=== PATIENT | male | born 1965 | race Caucasian/White ===

== ENCOUNTER 2017-03-26 00:44 | Emergency (ER) | payer OTHER, MEDICAID ==
[2017-03-26 01:05] VITALS: BP 114/86
== END 2017-03-26 01:05 | disposition home or self-care (01) ==
LOC: ED 00:44
DX: G40.909 Epilepsy, unspecified, not intractable, without status epilepticus (principal); M25.562 Pain in left knee; Z88.8 Allergy status to other drugs, medicaments and biological substances; Z88.6 Allergy status to analgesic agent; Z79.891 Long term (current) use of opiate analgesic; Z79.899 Other long term (current) drug therapy; Z79.52 Long term (current) use of systemic steroids

== ENCOUNTER 2017-05-30 15:38 | Emergency (ER) | payer OTHER, MEDICAID ==
[~2017-05-30] VITALS: Ht 182.9 cm; Wt 99.8 kg
[2017-05-30 19:33] VITALS: BP 136/72
== END 2017-05-30 19:33 | disposition home or self-care (01) ==
LOC: ED 15:38
DX: R56.9 Unspecified convulsions (principal); G93.40 Encephalopathy, unspecified; E11.9 Type 2 diabetes mellitus without complications; G83.81 Brown-Sequard syndrome; G83.11 Monoplegia of lower limb affecting right dominant side; I10 Essential (primary) hypertension; Z88.8 Allergy status to other drugs, medicaments and biological substances; Z88.5 Allergy status to narcotic agent

== ENCOUNTER 2017-09-27 02:21 | Emergency (ER) | payer OTHER, MEDICAID ==
[~2017-09-27] VITALS: Ht 185.4 cm; Wt 104.3 kg
[2017-09-27 02:28] VITALS: Ht 185.4 cm; Wt 104.3 kg
[2017-09-27 04:18] VITALS: BP 140/86
== END 2017-09-27 04:18 | disposition home or self-care (01) ==
LOC: ED 02:21
DX: S46.012A Strain of muscle(s) and tendon(s) of the rotator cuff of left shoulder, initial encounter (principal); G40.909 Epilepsy, unspecified, not intractable, without status epilepticus; I10 Essential (primary) hypertension; E11.9 Type 2 diabetes mellitus without complications; Z88.8 Allergy status to other drugs, medicaments and biological substances; W17.89XA Other fall from one level to another, initial encounter; Y93.89 Activity, other specified; Y92.89 Other specified places as the place of occurrence of the external cause; Y99.8 Other external cause status
CPT/HCPCS: Q0092

== ENCOUNTER 2018-04-18 13:40 | Inpatient (IN) | payer OTHER ==
[~2018-04-18] VITALS: Ht 185.4 cm; Wt 105.0 kg
[~2018-04-18 13:40] MED LIST: BACLOFEN10 MG PO; BACLOFEN20 MG PO; BACTRIM DS1 TAB PO; BD LACTINEX1.4 MG PO; DIL100 PO; GABAPENTIN600 M1 PO; NORCO1 TA2 PO; PHENYTOIN100 M1 PO; VIAGRA50 MG PO; ZANAFLEX CAPSULE2 MG PO; ZESTRIL20 MG PO; [UNRECOGNIZED DRUG - OTHER] PO
[2018-04-18 13:50] VITALS: Ht 185.4 cm; Wt 105.0 kg
[2018-04-18 14:06] LABS: BASOPHIL % 1.7 % (0-2); PLATELET COUNT 301 x10^3mcL (130-400); RED CELL DISTRIBUTION WIDTH 12.9 % (11.5-14.5)
[2018-04-18 14:22] LABS: ALKALINE PHOSPHATASE 176 U/L (46-116); ALT/SGPT 64 U/L (16-63); AST/SGOT 59 U/L (15-37); CALCIUM 7.4 mg/dL (8.5-10.1); CARBON DIOXIDE 22.3 mmol/L (21-32); CHLORIDE SERUM 90 mmol/L (98-107); CREATININE SERUM 1.1 mg/dL (0.7-1.3); GFR1 > 60 mL/min; GLUCOSE SERUM 209 mg/dL (74-106); POTASSIUM SERUM 3.5 mmol/L (3.5-5.1)
[2018-04-18 14:31] LABS: ALBUMIN 2.1 g/dL (3.4-5.0)
[2018-04-18 14:32] LABS: SODIUM SERUM 123 mmol/L (136-145)
[2018-04-18 17:28] VITALS: BP 125/81
[2018-04-18 18:23] LABS: MAGNESIUM 2.2 mg/dL (1.8-2.4); PHOSPHOROUS 2.9 mg/dL (2.5-4.9)
[2018-04-18 18:27] LABS: CHOLESTEROL/HDL RATIO 4.3
[2018-04-18 18:29] LABS: T3 TOTAL 0.72 ng/mL
[2018-04-18 18:33] LABS: FREE T4 1.18 ng/dL (0.76-1.46); FREE THYROXINE INDEX 2.3 ug/dL (1.4-4.5); T4(THYROXINE) 5.7 ug/dL (4.7-13.3)
[2018-04-18 19:31] LABS: CALCIUM 8.4 mg/dL (8.5-10.1); CARBON DIOXIDE 22.1 mmol/L (21-32); CHLORIDE SERUM 91 mmol/L (98-107); CREATININE SERUM 1.3 mg/dL (0.7-1.3); GFR1 > 60 mL/min; GLUCOSE SERUM 230 mg/dL (74-106); POTASSIUM SERUM 3.5 mmol/L (3.5-5.1)
[2018-04-18 19:35] LABS: SODIUM SERUM 124 mmol/L (136-145)
[2018-04-18 20:00] LABS: microscopic required? YES; urine erythrocyte 1+ (NEGATIVE)
[2018-04-18 20:16] LABS: AMPHETAMINE QUAL UR POSITIVE (See below)
[2018-04-18 21:21] VITALS: BP 146/78
[2018-04-19 01:03] LABS: BASOPHIL % 0.1 % (0-2); PLATELET COUNT 286 x10^3mcL (130-400)
[2018-04-19 01:07] LABS: CALCIUM 7.7 mg/dL (8.5-10.1); CARBON DIOXIDE 23.4 mmol/L (21-32); CHLORIDE SERUM 94 mmol/L (98-107); CREATININE SERUM 1.1 mg/dL (0.7-1.3); GFR1 > 60 mL/min; GLUCOSE SERUM 201 mg/dL (74-106); POTASSIUM SERUM 3.7 mmol/L (3.5-5.1); SODIUM SERUM 126 mmol/L (136-145)
[2018-04-19 05:43] VITALS: BP 124/87
[2018-04-19 06:38] LABS: BASOPHIL % 0.1 % (0-2); PLATELET COUNT 307 x10^3mcL (130-400); RED CELL DISTRIBUTION WIDTH 13.4 % (11.5-14.5)
[2018-04-19 06:43] LABS: CALCIUM 8.5 mg/dL (8.5-10.1); CARBON DIOXIDE 25.7 mmol/L (21-32); CHLORIDE SERUM 96 mmol/L (98-107); CREATININE SERUM 1.1 mg/dL (0.7-1.3); GFR1 > 60 mL/min; GLUCOSE SERUM 145 mg/dL (74-106); PHOSPHOROUS 4.4 mg/dL (2.5-4.9); POTASSIUM SERUM 3.8 mmol/L (3.5-5.1); SODIUM SERUM 130 mmol/L (136-145)
[2018-04-19 08:00] VITALS: BP 146/88
[2018-04-19 12:28] VITALS: BP 162/89
[2018-04-19 16:23] VITALS: BP 113/57
[2018-04-19 20:45] VITALS: BP 156/81
[2018-04-20 05:30] VITALS: BP 138/83
[2018-04-20 08:01] VITALS: BP 139/92
[2018-04-20 09:32] LABS: CALCIUM 8.2 mg/dL (8.5-10.1); CARBON DIOXIDE 24.6 mmol/L (21-32); CHLORIDE SERUM 97 mmol/L (98-107); CREATININE SERUM 0.9 mg/dL (0.7-1.3); GFR1 > 60 mL/min; GLUCOSE SERUM 205 mg/dL (74-106); POTASSIUM SERUM 3.7 mmol/L (3.5-5.1); SODIUM SERUM 131 mmol/L (136-145)
[2018-04-20 13:08] VITALS: BP 146/90
[2018-04-20 16:13] VITALS: BP 143/85
[2018-04-20 20:57] VITALS: BP 143/91
[2018-04-21 05:51] VITALS: BP 139/85
[2018-04-21 08:08] LABS: CALCIUM 9.3 mg/dL (8.5-10.1); CARBON DIOXIDE 25.5 mmol/L (21-32); CHLORIDE SERUM 97 mmol/L (98-107); CREATININE SERUM 0.9 mg/dL (0.7-1.3); GFR1 > 60 mL/min; GLUCOSE SERUM 166 mg/dL (74-106); POTASSIUM SERUM 4.2 mmol/L (3.5-5.1); SODIUM SERUM 132 mmol/L (136-145)
[2018-04-21 08:11] LABS: BASOPHIL % 0.3 % (0-2); RED CELL DISTRIBUTION WIDTH 13.2 % (11.5-14.5)
[2018-04-21 08:14] LABS: PLATELET COUNT 430 x10^3mcL (130-400)
[2018-04-21 09:48] VITALS: BP 140/86
[2018-04-21 13:25] VITALS: BP 146/94
[2018-04-21 17:17] VITALS: BP 161/94
[2018-04-21 20:53] VITALS: BP 150/99
[2018-04-22 04:52] VITALS: BP 149/97
[2018-04-22 09:22] VITALS: BP 134/90
[2018-04-22 13:51] VITALS: BP 139/92
[2018-04-22 18:24] VITALS: BP 129/90
[2018-04-22 21:14] VITALS: BP 138/99
[2018-04-23 08:24] VITALS: BP 136/89
[2018-04-23 12:43] VITALS: BP 111/76
[2018-04-23] MEDS ORDERED: KEFLEX750 M1 PO (13:37)
[2018-04-23] MEDS ORDERED: NORCO1 TA2 PO (13:39)
[2018-04-23] MEDS ORDERED: DILANTIN100 MG PO ×2 (13:57→14:39)
[2018-04-23 14:08] VITALS: BP 111/76
== END 2018-04-23 15:29 | disposition home or self-care (01) | DRG 917 ==
LOC: ED 13:40 → DU 15:46
PROVIDERS: Emergency Medicine; Family Medicine; Internal Medicine
DX: T43.621A Poisoning by amphetamines, accidental (unintentional), initial encounter (principal); G92 Toxic encephalopathy; E43 Unspecified severe protein-calorie malnutrition; N39.0 Urinary tract infection, site not specified; E87.1 Hypo-osmolality and hyponatremia; G40.909 Epilepsy, unspecified, not intractable, without status epilepticus; E83.51 Hypocalcemia; G83.81 Brown-Sequard syndrome; I10 Essential (primary) hypertension; K76.0 Fatty (change of) liver, not elsewhere classified; E80.6 Other disorders of bilirubin metabolism; F15.10 Other stimulant abuse, uncomplicated; F17.210 Nicotine dependence, cigarettes, uncomplicated; F10.10 Alcohol abuse, uncomplicated; Z68.30 Body mass index [BMI] 30.0-30.9, adult; Y92.018 Other place in single-family (private) house as the place of occurrence of the external cause
CPT/HCPCS: 83880; 84439; J0696; J1885; J1953; J2060; J2405; J3490; J7030; Q0092

== ENCOUNTER 2018-05-02 01:30 | Emergency (ER) | payer OTHER ==
[~2018-05-02] VITALS: Ht 185.4 cm; Wt 99.8 kg
[~2018-05-02 01:30] MED LIST changes: +DILANTIN100 MG PO; +KEFLEX750 M1 PO
[2018-05-02 01:39] VITALS: BP 145/102; Ht 185.4 cm; Wt 99.8 kg
== END 2018-05-02 05:15 | disposition home or self-care (01) ==
LOC: ED 01:30
DX: R30.0 Dysuria (principal); I10 Essential (primary) hypertension; E11.9 Type 2 diabetes mellitus without complications; Z86.69 Personal history of other diseases of the nervous system and sense organs; G83.81 Brown-Sequard syndrome; F41.9 Anxiety disorder, unspecified
CPT/HCPCS: 83880

== ENCOUNTER 2018-06-07 04:36 | Emergency (ER) | payer OTHER ==
[~2018-06-07] VITALS: Ht 185.4 cm; Wt 99.8 kg
[2018-06-07 04:43] VITALS: Ht 185.4 cm; Wt 99.8 kg
[2018-06-07 05:50] VITALS: BP 165/111
== END 2018-06-07 05:50 | disposition home or self-care (01) ==
LOC: ED 04:36
DX: S93.401A Sprain of unspecified ligament of right ankle, initial encounter (principal); S00.212A Abrasion of left eyelid and periocular area, initial encounter; E11.9 Type 2 diabetes mellitus without complications; I10 Essential (primary) hypertension; Z88.8 Allergy status to other drugs, medicaments and biological substances; Z88.5 Allergy status to narcotic agent; X58.XXXA Exposure to other specified factors, initial encounter; Y93.89 Activity, other specified; Y92.89 Other specified places as the place of occurrence of the external cause; Y99.8 Other external cause status
CPT/HCPCS: 90715; Q0092

== ENCOUNTER 2018-06-10 08:47 | Emergency (ER) | payer OTHER ==
[~2018-06-10] VITALS: Ht 185.4 cm; Wt 100.7 kg
[2018-06-10 08:49] VITALS: Ht 185.4 cm; Wt 100.7 kg
[2018-06-10 09:54] VITALS: BP 156/98
== END 2018-06-10 09:54 | disposition other institution (70) ==
LOC: ED 08:47
DX: Z48.01 Encounter for change or removal of surgical wound dressing (principal); Z02.79 Encounter for issue of other medical certificate; I10 Essential (primary) hypertension; E11.9 Type 2 diabetes mellitus without complications; F41.9 Anxiety disorder, unspecified; Z88.8 Allergy status to other drugs, medicaments and biological substances; Z88.6 Allergy status to analgesic agent

== ENCOUNTER 2018-09-28 05:38 | Emergency (ER) | payer OTHER ==
[~2018-09-28] VITALS: Ht 185.4 cm; Wt 101.2 kg
[2018-09-28 05:42] VITALS: Ht 185.4 cm; Wt 101.2 kg
[2018-09-28 06:23] LABS: BASOPHIL % 0.6 % (0-2); PLATELET COUNT 257 x10^3mcL (130-400); RED CELL DISTRIBUTION WIDTH 13.1 % (11.5-14.5)
[2018-09-28 06:24] LABS: CALCIUM 8.8 mg/dL (8.5-10.1); CARBON DIOXIDE 30.8 mmol/L (21-32); CHLORIDE SERUM 98 mmol/L (98-107); CREATININE SERUM 1.1 mg/dL (0.7-1.3); GFR1 > 60 mL/min; GLUCOSE SERUM 210 mg/dL (74-106); POTASSIUM SERUM 3.7 mmol/L (3.5-5.1); SODIUM SERUM 133 mmol/L (136-145)
[2018-09-28 06:28] LABS: ALBUMIN 3.9 g/dL (3.4-5.0); ALKALINE PHOSPHATASE 115 U/L (46-116); ALT/SGPT 26 U/L (16-63); AST/SGOT 19 U/L (15-37); BILIRUBIN TOTAL 2.01 mg/dL (0.20-1.00); MAGNESIUM 2.3 mg/dL (1.8-2.4); TOTAL PROTEIN, SERUM 7.8 g/dL (6.4-8.2)
[2018-09-28 14:24] VITALS: BP 162/99
== END 2018-09-28 14:05 | disposition home or self-care (01) ==
LOC: ED 05:38
PROVIDERS: Emergency Medicine
DX: G82.20 Paraplegia, unspecified (principal); G40.909 Epilepsy, unspecified, not intractable, without status epilepticus; I10 Essential (primary) hypertension; E11.9 Type 2 diabetes mellitus without complications; F41.9 Anxiety disorder, unspecified; Z88.1 Allergy status to other antibiotic agents
CPT/HCPCS: 82962; G0480; J1165; J2060

== ENCOUNTER 2018-10-24 02:05 | Emergency (ER) | payer OTHER ==
[~2018-10-24] VITALS: Ht 182.9 cm; Wt 83.9 kg
[2018-10-24 02:13] VITALS: Ht 182.9 cm; Wt 83.9 kg
[2018-10-24 03:13] LABS: microscopic required? YES; urine erythrocyte TRACE (NEGATIVE)
[2018-10-24 04:06] VITALS: BP 175/90
== END 2018-10-24 04:00 | disposition left against medical advice (07) ==
LOC: ED 02:05
PROVIDERS: Emergency Medicine
DX: S43.102A Unspecified dislocation of left acromioclavicular joint, initial encounter (principal); I10 Essential (primary) hypertension; E11.9 Type 2 diabetes mellitus without complications; G83.81 Brown-Sequard syndrome; Z88.8 Allergy status to other drugs, medicaments and biological substances; Z88.6 Allergy status to analgesic agent; Z87.828 Personal history of other (healed) physical injury and trauma; W18.30XA Fall on same level, unspecified, initial encounter; Y93.89 Activity, other specified; Y92.89 Other specified places as the place of occurrence of the external cause; Y99.8 Other external cause status
CPT/HCPCS: 84439; 87804; J2270

== ENCOUNTER 2018-11-06 22:54 | Emergency (ER) | payer OTHER ==
[~2018-11-06] VITALS: Ht 185.4 cm; Wt 104.3 kg
[2018-11-06 23:01] VITALS: Ht 185.4 cm; Wt 104.3 kg
[2018-11-07 00:05] LABS: CALCIUM 9.6 mg/dL (8.5-10.1); CARBON DIOXIDE 25.7 mmol/L (21-32); CHLORIDE SERUM 98 mmol/L (98-107); CREATININE SERUM 0.9 mg/dL (0.7-1.3); GFR1 > 60 mL/min; GLUCOSE SERUM 114 mg/dL (74-106); POTASSIUM SERUM 3.6 mmol/L (3.5-5.1); SODIUM SERUM 133 mmol/L (136-145)
[2018-11-07 00:11] LABS: ALKALINE PHOSPHATASE 117 U/L (46-116); ALT/SGPT 24 U/L (16-63); AST/SGOT 28 U/L (15-37); BILIRUBIN TOTAL 2.2 mg/dL (0.20-1.00); TOTAL PROTEIN, SERUM 7.9 g/dL (6.4-8.2)
[2018-11-07 00:30] LABS: BASOPHIL % 0.5 % (0-2); PLATELET COUNT 317 x10^3mcL (130-400); RED CELL DISTRIBUTION WIDTH 12.3 % (11.5-14.5)
[2018-11-07 04:44] VITALS: BP 129/85
== END 2018-11-07 05:56 | disposition home or self-care (01) ==
LOC: ED 22:54
PROVIDERS: Emergency Medicine
DX: G40.909 Epilepsy, unspecified, not intractable, without status epilepticus (principal); Z91.14 Patient's other noncompliance with medication regimen
CPT/HCPCS: 83880; J1953; J2060; J7030; Q0092